=== PATIENT | male | born 1975 | race Caucasian/White ===

== ENCOUNTER → 2020-06-06 11:51 | Outpatient (CLI) | payer OTHER, SELFPAY ==
--- NOTE | 2020-06-06 11:58 | RAD_ITS ---
STUDY: X-RAY - PELVIS AND BILATERAL HIPS REASON FOR EXAM: Right hip pain. TECHNIQUE: AP view of the pelvis.? 2 views of the right hip, and 2 views of the left hip were obtained. COMPARISON: None. FINDINGS: Normal visualized soft tissue structures. Normal bilateral iliac wings, sacroiliac joints and visualized sacrum. Normal bilateral superior and inferior pubic rami. Normal pubic symphysis. Normal bilateral ischial tuberosities. Normal visualized right femoral head. Normal right acetabulum. Normal right hip joint. Normal visualized left femoral head. There is a small left os acetabula. Normal left hip joint. RAD/Hips B/L min 2 views w/ Pelvis IMPRESSION: Small left os acetabula. Otherwise, unremarkable x-ray examination of the pelvis and bilateral hips. Electronically Signed: Davie Campbell MD at 14:33 EST Tel , Service support ,
== END ==
PROVIDERS: PCP Family Medicine; Referring Provider Family Medicine; Visit Provider Family Medicine
DX: M25.551 Pain in right hip (principal); M25.552 Pain in left hip
CPT/HCPCS: 73521

== ENCOUNTER → 2021-05-19 15:00 | Outpatient (CLI) | payer OTHER, SELFPAY ==
[2021-05-19 18:22] LABS: Hemoglobin 13.8 g/dL (13.0-16.5); Mean Corp Hgb Conc 32.9 g/dL (32-36); Mean Corpuscular Hgb 29.5 pg (27.0-32.0); Mean Corpuscular Volume 89.7 fL (80-94); Platelet Count 206 K/mm3 (150-450); RBC Distribution Width CV 13.3 % (11.6-14.6); RBC Distribution Width SD 44.3 fl (35.1-43.9); Red Blood Count 4.68 M/mm3 (4.6-6.2); White Blood Count 9.6 K/mm3 (4.4-11.0)
[2021-05-19 19:09] LABS: ALB/GLOB Ratio 1.2 RATIO (0.9-2.4); AST(SGOT) 23 U/L (15-37); Alanine Aminotransfer ALT/SGPT 46 U/L (16-61); Albumin, Serum 3.8 g/dL (3.2-5.0); Alkaline Phosphatase 71 U/L (45-117); Anion Gap 8 (5-15); BUN 13 mg/dL (7-18); BUN/Creat Ratio 16.9 RATIO (10-20); Calcium,Total 8.9 mg/dL (8.5-10.1); Chloride 103 mmol/L (98-107); Cholesterol 224 mg/dL (200); Creatinine, Serum 0.77 mg/dL (0.70-1.30); EST Glomerular Filtration Rate 115 mL/min (>60); Est Glom Filt Rate - Afr Amer 139 mL/min (>60); Globulin 3.2 g/dL (2.2-4.2); Glucose 80 mg/dL (74-106); High Density Lipoprotein 37 mg/dL; PSA,Total - Annual Screen 0.48 ng/mL (0.00-4.00); Potassium 3.9 mmol/L (3.5-5.1); Sodium Level 139 mmol/L (136-145); Triglycerides 189 mg/dL; Very Low Density Lipoprotein 38 mg/dL (5-40)
== END ==
PROVIDERS: Registered Nurse; PCP Family Medicine; Visit Provider Family Medicine
DX: Z00.00 Encounter for general adult medical examination without abnormal findings (principal); Z12.5 Encounter for screening for malignant neoplasm of prostate
CPT/HCPCS: 36415; 80053; 80061; 84153; 85027; G0103

== ENCOUNTER 2021-08-11 07:34 | Outpatient (CLI) | payer OTHER, SELFPAY ==
--- NOTE | 2021-08-11 07:45 | RAD_ITS ---
STUDY: X-RAY - ESOPHAGUS (BARIUM SWALLOW) WITH FLUOROSCOPY REASON FOR EXAM: Male, 45 years old. DYSPHAGIA TECHNIQUE: 20 view(s) of the esophagus were obtained following swallowing of barium. FLUOROSCOPY TIME (if supplied): (41 seconds) minutes/seconds COMPARISON: None. FINDINGS: There is no demonstrated esophageal foreign body. Mild degree of circumferential narrowing at the gastroesophageal junction. The patient ingested a 12 mm tablet at bedtime. The tablet is trapped at the gastroesophageal junction. Mild gastroesophageal reflux. Normal visualized aortic arch and descending thoracic aorta. Normal visualized pulmonary parenchyma. Normal visualized osseous structures of the thorax. RAD/Esophagus Dual Contrast IMPRESSION: Mild degree of the circumferential narrowing at the gastroesophageal junction with trapping of the 12 mm tablet at bedtime. Endoscopic correlation is recommended. Mild degree of gastroesophageal reflux. Electronically Signed: Harvey Cardona MD at 10:09 EDT ,
== END 2021-08-11 23:59 | disposition home or self-care (01) ==
LOC: RAD 07:34
PROVIDERS: PCP Family Medicine; Referring Provider Family Medicine; Visit Provider Family Medicine
DX: R13.10 Dysphagia, unspecified (principal)
CPT/HCPCS: 74221

== ENCOUNTER 2024-07-25 21:47 | Inpatient (IN) | payer OTHER, SELFPAY ==
[2024-07-25 21:47] VITALS: BP 181/99; PULSE 60; RESP 15; TEMP 36.6; O2SAT 97; BMI 32.3
--- NOTE | 2024-07-25 22:08 | EX.ED.DYSGE1 ---
HPI History of Present Illness Chief Complaint: Abd Pain Informant: patient and spouse/S.O. Narrative Narrative: Patient is a 48-year-old male with no significant past medical history. He states that he saw his provider recently and was diagnosed with influenza and has taken 4 days worth of Tamiflu. He states he was also tested for strep and was positive and has been on amoxicillin for 3 days. Today he developed upper abdominal discomfort and bouts of nausea and vomiting. He does state his daughter was sick with bouts of nausea and vomiting but this was roughly 2 weeks ago. Otherwise he denies any known sick contacts with similar symptoms. He is unsure if he has picked up an other infection or if this is related to potential medication side effect and therefore comes in for evaluation [facility] Medical History (Updated 07/26/24 @ 00:[address] Chavez Diallo, ) Influenza A Medical History no medical history no medical history Home Medications ?Medication ?Instructions ?Recorded ?Last Taken ?Type omeprazole 10 mg capsule,delayed 10 mg PO ONCE 04/16/24 Unknown History release benzonatate 200 mg capsule 200 mg PO TID PRN cough #20 caps 07/18/24 Unknown Rx amoxicillin 500 mg tablet 500 mg PO Q12H 10 days #20 tabs 07/22/24 Unknown Rx Allergy/AdvReac Type Severity Reaction Status Date / Time No Known Allergies Allergy Verified 07/25/24 21:49 Social History Smoking Status: Current every day smoker tobacco type: cigarettes ROS ROS ED Constitutional Constitutional ED: Denies chills or fever(s) Eyes Eyes: Denies change in vision ENT ENT ED: Reports rhinorrhea and sore throat Cardiovascular Cardiovascular: Denies chest pain Respiratory/Chest Respiratory/Chest: Denies cough or dyspnea Gastrointestinal Gastrointestinal: Reports abdominal pain, nausea and vomiting; Denies diarrhea Genitourinary Genitourinary ED: Denies dysuria or hematuria Musculoskeletal Musculoskeletal: Reports myalgias Integumentary Denies rash Neurologic Neurologic: Denies headache(s) Hematologic/Lymphatic Hematologic/Lymphatic: Denies easy bleeding or easy bruising Allergic/Immunologic Allergic/Immunologic ED: Denies mouth swelling or tongue swelling EXAM Physical Exam Const Vital Signs: 07/25/24 21:47 07/25/24 23:47 Temperature 97.9 F Temperature Source Temporal Pulse Rate 60 62 Respiratory Rate 15 18 Blood Pressure 181/99 H 163/89 H Blood Pressure Mean 126 113 Pulse Ox 97 95 Oxygen Delivery Method Room Air Room Air Positive well nourished and well developed General Appearance ED: well developed; Negative for pallor HEENT Reports dry mucous membranes HEENT Narrative: No tongue or lip swelling no oral lesions no airway edema or compromise No signs of peritonsillar abscess noted in the posterior pharynx Mucous membranes are dry and tacky Mouth ED: Yes dry mucous membranes Mouth: dry mucous membranes Eyes PERRL and EOMs intact bilaterally General Eye ED: Negative for scleral icterus Neck supple Neck Narrative: No nuchal rigidity or meningeal signs noted Resp normal respiratory effort and clear to auscultation bilaterally Cardio regular rate and regular rhythm Rate: other Other Details: Heart is regular rate and rhythm without murmurs rubs or gallops Radial and carotid pulses are equal and symmetric GI non-distended and no masses GI Narrative: Abdomen is soft and nondistended with hyperactive bowel sounds There is mild pain on palpation in the upper abdomen diffusely without voluntary guarding or rigidity No pulsatile mass or fluid wave Negative Gatica sign Auscultation: hyperactive bowel sounds Palpation: soft Extremity normal to inspection Neuro oriented x3, CN's II-XII intact bilaterally and no sensory deficits noted Sensorium / Orientation: alert Motor Exam: strength 5/5 throughout Psych mental status grossly normal Skin no rashes or lesions noted and No skin turgor normal Skin Narrative: Skin turgor is increased consistent with mild dehydration General Skin Exam: Negative for jaundice or pallor MDM MDM MDM Narrative Medical decision making narrative: Patient arrived to the ER hypertensive but otherwise with stable vitals. He reports a recent diagnosis of influenza and strep and has been on Tamiflu and amoxicillin. His report of abdominal pain with nausea and vomiting could be secondary to a repeat infection such as norovirus versus rotavirus. There is also a potential that his symptoms are related to adverse medication reaction as he has been on Tamiflu and amoxicillin. Patient also could have abdominal symptoms secondary to a lower lobe pneumonia. Moreover, the patient could have atypical presentation for pancreatitis acute cholecystitis biliary colic or acute appendicitis. His white count is elevated at approximately 16 with left shift as he has approximately 12 neutrophils and therefore a CT scan of the abdomen pelvis was obtained. The CT scan showed acute appendicitis with appendicolith but no perforation or abscess. Secondary to this he was started on Zosyn and the case was discussed with general surgery Dr. Delgadillo. At this time the patient will be admitted to his service with plan of surgical removal of his appendix in the morning History & Record Review Discussion w/independent historian: Patient and Significant other Lab Data Attestation: I reviewed the patient's lab results. Labs: Laboratory Results - last 24 hr 07/25/24 22:00 WBC 15.7 H RBC 4.80 Hgb 14.0 Hct 41.4 MCV 86.3 MCH 29.2 MCHC 33.8 RDW Std Deviation 39.9 RDW Coeff of Jose G 12.7 Plt Count 266 MPV 10.0 Immature Gran % (Auto) 0.400 Neut % (Auto) 78.7 H Lymph % (Auto) 13.3 L Monroe % (Auto) 6.9 Eos % (Auto) 0.4 Baso % (Auto) 0.3 Absolute Neuts (auto) 12.3 H Absolute Lymphs (auto) 2.09 Nucleated RBC % 0 Sodium 139 Potassium 3.7 Chloride 101 Carbon Dioxide 23.8 Anion Gap 14 BUN 15 Creatinine 0.88 Estim Creat Clear Calc 121.54 Est GFR (MDRD) Non-Af 105 BUN/Creatinine Ratio 16.7 Glucose 116 H Calcium 9.3 Total Bilirubin 0.24 Direct Bilirubin 0.11 AST 22 ALT 28 Alkaline Phosphatase 76 Total Protein 7.4 Albumin 4.0 Globulin 3.4 Lipase 22 Radiography Diagnostic Testing: Clinical Impression(s) from Imaging Studies Abdomen/Pelvis CT 07/25/24 22:23 IMPRESSION: Findings consistent with acute appendicitis. No abscess formation. No free air. One or more dose reduction techniques were used (e.g., Automated exposure control, adjustment of the mA and/or kV according to patient size, use of iterative reconstruction technique). Reading Location: [facility] Chest X-Ray 07/25/24 22:41 IMPRESSION: NEGATIVE CHEST Reading Location: [facility] Chest x-ray as interpreted by the emergency medicine physician reveals no acute infiltrate pneumothorax or pleural effusion Discharge Plan Dx/Rx/DC Orders Clinical Impression: Acute appendicitis, Hypertension Disposition Disposition: [facility]
[2024-07-25] MEDS: Ondansetron 4 MG/2 ML Vial IV (22:11)
[2024-07-25] MEDS: Morphine 4 MG/ML Syringe IV (22:11)
[2024-07-25] MEDS: 0.9% Normal Saline (1000mL) 1,000 ML 999 ML IV ×2 (22:11→23:07)
[2024-07-25 22:16] LABS: Absolute Lymphocyte Count 2.09 X10^3/uL (0.83-4.51); Absolute Neutrophil Count 12.3 X10^3/uL (2.0-7.7); Basophil# 0.04 X10^3/uL; Basophil% 0.3 % (0-1); Eosinophil# 0.07 X10^3/uL; Eosinophils% 0.4 % (0-5); Hematocrit 41.4 % (40-54); Lymphocyte # 2.09 X10^3/ul (0.83-4.51); Lymphocyte % 13.3 % (19-41); Mean Corp Hgb Conc 33.8 g/dL (32-36); Mean Corpuscular Hgb 29.2 pg (27.0-32.0); Mean Corpuscular Volume 86.3 fL (80-94); Monocyte# 1.08 X10^3/uL; Monocyte% 6.9 % (0-10); NRBC Flagged by Analyzer 0 % (0-5); Neutrophil # 12.31 X10^3/uL (2.7-7.7); Neutrophil % 78.7 % (47-70); Platelet Count 266 K/mm3 (150-450); RBC Distribution Width CV 12.7 % (11.6-14.6); RBC Distribution Width SD 39.9 fl (35.1-43.9); White Blood Count 15.7 K/mm3 (4.4-11.0)
--- NOTE | 2024-07-25 22:23 | CT_ITS ---
PROCEDURE: ABDOMEN/PELVIS W IV CONT ONLY TECHNIQUE: Abdomen and pelvis CT with intravenous contrast. No oral contrast. IV CONTRAST: COMPARISON: None. FINDINGS: Lung bases: Clear Liver: Tiny low attenuating lesion, too small to characterize. Gallbladder: Unremarkable. Spleen: Unremarkable. Pancreas: Unremarkable. Adrenals: Unremarkable. Kidneys: Unremarkable. Bladder: Unremarkable. Reproductive Organs: Unremarkable. Bowel: Unremarkable. Appendix: The appendix is distended with wall thickening and adjacent stranding measuring 1.5 cm, as well as an appendicolith. Lymph nodes: No suspicious lymph node enlargement. Vasculature: Mild diffuse atherosclerotic calcifications are noted. Peritoneum / Retroperitoneum: No ascites. No free air. Bones: Unremarkable. CT/Abdomen/Pelvis W IV Cont ONLY IMPRESSION: Findings consistent with acute appendicitis. No abscess formation. No free ai r. One or more dose reduction techniques were used (e.g., Automated exposure contr ol, adjustment of the mA and/or kV according to patient size, use of iterative reconstruction technique). Reading Location: [facility]
[2024-07-25 22:35] LABS: AST(SGOT) 22 U/L (<=37); Alanine Aminotransfer ALT/SGPT 28 U/L (<=46); Alkaline Phosphatase 76 U/L (40-129); Anion Gap 14 (5-15); BUN 15 mg/dL (4-19); BUN/Creat Ratio 16.7 RATIO (10-20); Bilirubin, Direct 0.11 mg/dL (0.00-0.30); Calcium,Total 9.3 mg/dL (7.6-11.0); Carbon Dioxide 23.8 mmol/L (21.0-32.0); Chloride 101 mmol/L (98-108); Creatinine, Serum 0.88 mg/dL (0.70-1.20); EST Glomerular Filtration Rate 105 (>60); Estimated Creatinine Clearance 121.54 ml/min (50-250); Globulin 3.4 g/dL (2.2-4.2); Glucose 116 mg/dL (70-99); Lipase 22 U/L (13-75); Potassium 3.7 mmol/L (3.3-5.1); Protein, Total 7.4 g/dL (5.9-8.4); Sodium Level 139 mmol/L (133-145); Total Bilirubin 0.24 mg/dL (0.00-1.30)
--- NOTE | 2024-07-25 22:41 | RAD_ITS ---
PROCEDURE: CHEST PA AND LATERAL REASON FOR EXAM: Cough TECHNIQUE: Frontal and lateral views of the chest. COMPARISON: None. FINDINGS: The heart size is normal. The mediastinal contour is unremarkable. The lungs are clear. The bones are unremarkable. RAD/Chest PA and Lateral IMPRESSION: NEGATIVE CHEST [facility]
[2024-07-25] MEDS: HYDROmorphone 1 MG/ML Syringe IV (23:07)
[2024-07-25 23:47] VITALS: BP 163/89; PULSE 62; RESP 18; O2SAT 95
[2024-07-26] VITALS (19 sets, daily range): BP systolic 115–163; BP diastolic 65–93; PULSE 59–95; RESP 16–24; TEMP 36.5–37.6; O2SAT 90–97; BMI 33.0
--- NOTE | 2024-07-26 00:12 | ED.RN ---
Dr. Elie kendall
[2024-07-26] MEDS: Piperacil/Tazobactam 3.375 GM in 0.9% Normal Saline (50mL MB+) 50 ML IV ×4 (00:23→21:15)
[2024-07-26] MEDS: 0.9% Normal Saline (1000mL) 1,000 ML 200 ML IV (00:23)
[2024-07-26] MEDS: Morphine 2 MG/ML Syringe IV ×5 (01:36→20:57)
[2024-07-26] MEDS: 0.9% Saline Lock 10 ML Syringe IV ×3 (01:36→20:56)
[2024-07-26 07:21] LABS: Hematocrit 40.4 % (40-54); Hemoglobin 13.6 g/dL (13.0-16.5); Mean Corp Hgb Conc 33.7 g/dL (32-36); Mean Corpuscular Hgb 29.3 pg (27.0-32.0); Mean Corpuscular Volume 87.1 fL (80-94); Mean Platelet Vol. 9.7 fl (6.2-12.0); Platelet Count 242 K/mm3 (150-450); RBC Distribution Width CV 12.8 % (11.6-14.6); RBC Distribution Width SD 40.6 fl (35.1-43.9); Red Blood Count 4.64 M/mm3 (4.6-6.2); White Blood Count 14.8 K/mm3 (4.4-11.0)
--- NOTE | 2024-07-26 08:47 | HP.PCM_ITS ---
HPI - General General Date of Admission: 07/26/24 Date of Service: 07/26/24 Chief Complaint: Right lower quadrant abdominal pain HPI Narrative ANDER HAY, is a 48 M who presents with a 1 day history of worsening right lower quadrant abdominal pain. Patient states last Tuesday he tested positive for influenza A. He was given Tamiflu and completed that prescription except fro 1 tablet. Patient continued not feeling well 4 days later and returned to urgent care on Tuesday and tested positive for strep and was placed on amoxicillin for 10 days. Patient notes he stayed home from work Tuesday and Tuesday. Tuesday he returned to work where he had pizza for lunch. Following eating lunch, he noted to have centralized abdominal pain. He came home and took a shower and the pain became worse and he told his he better go to the ED. Patient states the abdominal pain was associated with nausea and vomiting. He notes after his shower the pain radiated from the central location to the right lower quadrant. Patient also noted diarrhea with urgency over the last [address] scan obtained in the ED demonstrated acute appendicitis with an appendicolith and adjacent stranding measuring 1.5 cm. Patient's WBC is 14.8. He denies any previous cardiac history or pulmonary history. He smokes 1 ppd of cigarettes. He denies any illicit drugs. He denies any previous abdominal surgeries. He denies any previous complications or side effects from anesthesia. [facility] Medical History (Updated 07/26/24 @ 10:09 by Brenda HESS PAChaimC) Acid reflux Influenza A Medical History no medical history Home Medications ?Medication ?Instructions ?Recorded ?Last Taken ?Type benzonatate 200 mg capsule 200 mg PO TID PRN cough #20 caps 07/18/24 Unknown Rx amoxicillin 500 mg tablet 500 mg PO Q12H 10 days #20 t abs 07/22/24 Unknown Rx oseltamivir 75 mg capsule 75 mg PO BID 07/26/24 Unknow n History pantoprazole 40 mg tablet,delayed 40 mg PO DAILY 07/26 Unknown History release Allergy/AdvReac Type Severity Reaction Status Date / Time No Known Allergies Allergy Verified 07/25/24 21:49 Surgical History (Updated 07/26/24 @ 01:29 by Catrachita Stallworth) S/P excision of lipoma Status post repair of ligament of ankle Social History Smoking Status: Current every day smoker tobacco type: cigarettes ROS Constitutional Constitutional: Reports systems reviewed and no addt'l complaints, except as documented Eyes Eyes: Reports systems reviewed and no addt'l complaints, except as documented ENT HEENT: Reports systems reviewed and no addt'l complaints, except as documented Cardiovascular Cardiovascular: Reports systems reviewed and no addt'l complaints, except as documented Respiratory/Chest Respiratory/Chest: Reports systems reviewed and no addt'l complaints, except as documented Gastrointestinal Gastrointestinal: Reports systems reviewed and no addt'l complaints, except as documented Genitourinary Genitourinary: Reports systems reviewed and no addt'l complaints, except as documented Musculoskeletal Musculoskeletal: Reports systems reviewed and no addt'l complaints, except as documented Integumentary Integumentary: Reports systems reviewed and no addt'l complaints, except as documented Neurologic Neurologic: Reports systems reviewed and no addt'l complaints, except as documented Psychiatric Psychiatric: Reports systems reviewed and no addt'l complaints, except as documented Endocrine Endocrinology: Reports systems reviewed and no addt'l complaints, except as documented Hematologic/Lymphatic Hematologic/Lymphatic: Reports systems reviewed and no addt'l complaints, except as documented Allergic/Immunologic Allergic/Immunologic: Reports systems reviewed and no addt'l complaints, except as documented Vital Signs Vital Signs Vital Signs: 07/25/24 21:47 07/25/24 23:47 07/26/24 00:30 Temperature 97.9 F 98.4 F Temperature Source Temporal Pulse Rate 60 62 63 Respiratory Rate 15 18 18 Blood Pressure 181/99 H 163/89 H 163/93 H Blood Pressure Mean 126 113 116 Blood Pressure Source Blood Pressure Position Blood Pressure Location Pulse Ox 97 95 97 Oxygen Delivery Method Room Air Room Air 07/26/24 01:18 07/26/24 01:18 07/26/24 04:55 Temperature 97.9 F 99 F Temperature Source Oral Temporal Pulse Rate 59 L 62 Respiratory Rate 18 18 Blood Pressure 161/90 H 147/87 H Blood Pressure Mean 113 107 Blood Pressure Source Blood Pressure Position Blood Pressure Location Pulse Ox 94 95 Oxygen Delivery Method Room Air Room Air Room Air 07/26/24 07:00 07/26/24 08:34 Temperature 98 F Temperature Source Temporal Pulse Rate 64 Respiratory Rate 18 Blood Pressure 136/78 H Blood Pressure Mean 97 Blood Pressure Source Monitor Blood Pressure Position Semi-Fowlers Blood Pressure Location Right Arm Pulse Ox 96 96 Oxygen Delivery Method Room Air Room Air Weight Weight: 230 lb 8 oz Body Mass Index (BMI) 33.0 Physical Exam Const alert, oriented x3 and no apparent distress HEENT normocephalic and head/scalp atraumatic Eyes PERRL Neck full ROM Chest inspection of chest normal Resp normal respiratory effort and clear to auscultation bilaterally Cardio regular rate and regular rhythm GI GI Narrative: Abdomen- soft, nondistended. Guarding of the right lower quadrant along with pain to palpation. Hypoactive bowel sounds. no CVA tenderness Back/Spine no CVA tenderness Extremity normal to inspection Skin no rashes or lesions noted Neuro no focal motor deficits and no sensory deficits noted Psych mental status grossly normal and thought process normal Results Lab / Micro Data 07/26/24 07:15 07/25/24 22:00 Labs: Laboratory Results - last 24 hr 07/25/24 22:00: WBC 15.7 H, RBC 4.80, Hgb 14.0, Hct 41.4, MCV 86.3, MCH 29.2, MCHC 33.8, RDW Std Deviation 39.9, RDW Coeff of Jose G 12.7, Plt Count 266, MPV 10.0, Immature Gran % (Auto) 0.400, Neut % (Auto) 78.7 H, Lymph % (Auto) 13.3 L, Curry % (Auto) 6.9, Eos % (Auto) 0.4, Baso % (Auto) 0.3, Absolute Neuts (auto) 12.3 H, Absolute Lymphs (auto) 2.09, Nucleated RBC % 0, Sodium 139, Potassium 3.7, Chloride 101, Carbon Dioxide 23.8, Anion Gap 14, BUN 15, Creatinine 0.88, Estim Creat Clear Calc 121.54, Est GFR (MDRD) Non-Af 105, BUN/Creatinine Ratio 16.7, Glucose 116 H, Calcium 9.3, Total Bilirubin 0.24, Direct Bilirubin 0.11, AST 22, ALT 28, Alkaline Phosphatase 76, Total Protein 7.4, Albumin 4.0, Globulin 3.4, Lipase 22 07/26/24 07:15: WBC 14.8 H, RBC 4.64, Hgb 13.6, Hct 40.4, MCV 87.1, MCH 29.3, MCHC 33.7, RDW Std Deviation 40.6, RDW Coeff of Jose G 12.8, Plt Count 242, MPV 9.7 Imaging Radiology Impression Abdomen/Pelvis CT 07/25/24 22:23 IMPRESSION: Findings consistent with acute appendicitis. No abscess formation. No free air. One or more dose reduction techniques were used (e.g., Automated exposure control, adjustment of the mA and/or kV according to patient size, use of iterative reconstruction technique). [facility] X-Ray 07/25/24 22:41 IMPRESSION: NEGATIVE CHEST Reading [facility] Assessment & Plan Assessment/Plan (1) Acute appendicitis: QUALIFIERS: Acute appendicitis type: with localized peritonitis A ppendicitis gangrene presence: without gangrene Appendicitis perforation presence: without perforation Appendicitis abscess presence: without abscess Q ualified Code(s): K35.30 - Acute appendicitis with localized peritonitis, without perforation or gangrene PLAN: I am seeing this patient in conjunction with Dr. Delgadillo. He will independently evaluate this patient. Patient with an 8 day history of upper respiratory infection and strep infection prodromal with a 1 day history of worsening right lower quadrant abdominal pain. CT scan confirms acute appendicitis with an appendicolith. Dr. Delgadillo will plan to perform a laparoscopic appendectomy later this afternoon. Procedure details, risks and benefits have been explained. Patient and his spouse have had the opportunity to ask and have questions answered. Patient verbally understands and agrees with the plan. Possible discharge following the procedure pending recovery time. Thank you for allowing us to participate in this patient's care. Charges/Coding Visit Charges Inpatient E&M: 45613 Init Hosp L2
[2024-07-26] MEDS: Ondansetron 4 MG/2 ML Vial IV (09:49)
[2024-07-26] MEDS: 0.9% Normal Saline (1000mL) 1,000 ML 100 ML IV (10:51)
--- NOTE | 2024-07-26 11:46 | CPS ---
Pt working on own
--- NOTE | 2024-07-26 14:12 | PCM.PRE.AN2 ---
ASA Classification* ASA Classification ASA Classification: 3 Assessment & Plan Anesthesia* Anesthesia Assessment Anesthesia Assessment: Discussed sedation and/or anesthesia options, risks, benefits, and alternatives with patient/parents/legal guardian/POA. Questions invited. The patient/parents/legal guardian/POA seems to understand and agrees to proceed with anesthesia plan. Reviewed the physical assessment, medical history, allergy history and patient home medications list prior to surgery/procedure/anesthetic and documented any changes. Performed airway and anesthesia risk assessments. Anesthesia Type Anesthesia Type: General History Source History Obtained from:: Patient and Chart Anesthesia Focused Assessment* Temperature: 99.7 F Pulse Rate: 60 Blood Pressure: 133/77 Respiratory Rate: 18 Pulse Ox: 95 Oxygen Delivery Method: Room Air Airway Assessment Mouth opens: >3 cm Mallampati Score: II Teeth Condition: Intact Neck Range of motion (ROM): Full ROM Focused Labs Anesthesia Preop lab: CBC WBC 14.8 K/mm3 (4.4-11.0) H 07/26/24 07:15 07/26/24 RBC 4.64 M/mm3 (4.6-6.2) 07/26/24 07:15 07/26/24 Hgb 13.6 g/dL (13.0-16.5) 07/26/24 07:15 07/26/24 Hct 40.4 % (40-54) 07/26/24 07:15 07/26/24 Plt Count 242 K/mm3 (150-450) 07/26/24 07:15 07/26/24 CHEMISTRY Potassium 3.7 mmol/L (3.3-5.1) 07/25/24 22:00 07/25/24 Sodium 139 mmol/L (133-145) 07/25/24 22:00 07/25/24 BUN 15 mg/dL (4-19) 07/25/24 22:00 07/25/24 Creatinine 0.88 mg/dL (0.70-1.20) 07/25/24 22:00 07/25/24 Glucose 116 mg/dL (70-99) H 07/25/24 22:00 07/25/24 COAG Pre-Assessment Diagnosis/Proposed Procedure Planned Operative Procedure(s): Laparoscopic appendectomy. Anesthesia History Anesthesia History - digital measurement advisor: Anesthesia History - digital measurement advisor Hx Hospitalization Any Problems With Anesthesia No 07/26/24 01:18 Cholinesterase deficiency No 07/26/24 01:18 You/Your Family Experience No 07/26/24 01:18 fever (hyperthermia) with Relationship Recent Exposure to Contagious Yes 07/26/24 01:18 Disease Does patient have nerve No 07/26/24 01:18 stimulator Patient instructed to have No 07/26/24 01:18 device shut off --Does patient have Pacemaker or ICD? When Was Last Pacemaker Check QUESTION #4 FULL TEXT: You/Your Family Experience fever (hyperthermia) with Anesthesia Last Oral Intake Last Oral intake: Last Oral Intake NPO since Meds taken in AM with sips of water? Meds patient instructed to take am of surgery Any additional information?: Yes NPO since: 00:00 PONV PONV - digital measurement advisor: PONV - digital measurement advisor Female HX of Motion Sickness HX of N/V After Surgery Non-Smoker Duration of Surgery greater than 60 minutes Number of Risk Factors PONV Score Height & Weight Height & Weight: Anesthesia: Height & Weight Height 5 ft 10 in 07/26/24 01:07 Weight: 104.553 kg 07/26/24 01:07 Body Mass Index (BMI) 33.0 07/26/24 01:07 Respiratory Assessment Respiratory Assessment - digital measurement advisor: Respiratory Tract Infection Hx - digital measurement advisor Hx Respiratory Tract Infection Yes 07/26/24 01:18 Any additional information?: Yes Hx Respiratory Tract Infection: Yes (Patient had flu a last week which then improved. But he contracted strep.) STOP Sleep Apnea STOP Sleep Apnea - digital measurement advisor: STOP Sleep Apnea - digital measurement advisor Hx Hypertension No 07/26/24 01:07 Hx Sleep Apnea No 07/26/24 01:07 CPAP BIPAP Do you snore loudly (louder Yes 07/26/24 01:07 than talking or can be heard Do you often feel tired/ No 07/26/24 01:07 fatigued/ sleepy during daytime? Has anyone observed you stop No 07/26/24 01:07 breathing during sleep? STOP Results Negative 07/26/24 01:07 QUESTION #5 FULL TEXT : Do you snore loudly (louder than talking or can be heard through closed doors)? Tobacco Use History Tobacco Use History - digital measurement advisor: Tobacco Use History - digital measurement advisor Tobacco Use Smoking Status Current every day smoker 07/26/24 07:58 Hx Tobacco Use Yes 07/26/24 01:07 Years Smoking Packs Smoked per Day Smoking Cessation Date was within the last 15 years Hx Smoking Cessation Date Hx Smoking Cessation Counseling Hematologic Medial History Hematologic Hx - digital measurement advisor: Hematologic Medical Hx - cash accounting clerk Hx of Blood Transfusion No 07/26/24 01:07 Hx of Transfusion in last 3 No 07/26/24 01:07 Months Date of Last Transfusion (if within last 3 months) Ever experience any problems No 07/26/24 01:07 with transfusion(s)? Specify any problems Hx of Preganancy in last 3 N/A 07/26/24 01:07 Months Nurse Filling Out Transfusion LFORREST 07/26/24 01:07 & Questions: Date: 07/26/24 07/26/24 01:07 Time: 01:09 07/26/24 01:07 Patient unable to answer at this time (ie. confused, unrespo /Reproduction History /Reproductive History - digital measurement advisor: /Reproductive Hx- digital measurement advisor Hx Now No 07/26/24 01:18 Gestational Age (in weeks): EDC: Hx Hx Para Hx Section SAB No 07/26/24 01:18 Active Medications Active Medications: Current Medications Generic Name Dose Route Start Last Admin Trade Name Freq PRN Reason Stop Dose Admin Acetaminophen 1,000 mg 07/26/24 06:00 07/26/24 13:15 Acetaminophen 500 Mg Tablet PO Not Given Q8 ERA Sodium Chloride 100 mls @ 15 mls/hr 07/26/24 00:39 IV .Q6H40M PRN Saline Flush Piperacillin Sod/Tazobactam 50 mls @ 12.5 mls/hr 07/26/24 06:00 07/26/24 09:09 Sod 3.375 gm/ Sodium Chloride IV Infused Q8 ERA Infusion Sodium Chloride 1,000 mls @ 100 mls/hr 07/26/24 09:50 07/26/24 10:51 IV 07/26/24 19:49 100 mls/hr .Q10H ERA Administration Protocol Morphine Sulfate 2 - 4 mg 07/26/24 00:56 07/26/24 13:25 Morphine 2 Mg/Ml Syringe IV 2 mg Q3H PRN PRN Administration Pain Score 6-10 Ondansetron HCl 4 mg 07/26/24 00:56 07/26/24 09:49 Ondansetron 4 Mg/2 Ml Vial IV 4 mg Q8H PRN PRN Administration NAUSEA/VOMITING Oxycodone HCl 10 mg 07/26/24 00:56 Oxycodone 5 Mg Tablet PO Q4H PRN PRN Pain Score 4-10 Sodium Chloride 10 - 40 ml 07/26/24 00:39 07/26/24 04:57 0.9% Saline Lock 10 Ml Syringe IV 10 ml UD PRN Administration SALINE FLUSH PFSH Medical History Acid reflux Influenza A Medical History no medical history Home Medications ?Medication ?Instructions ?Recorded ?Last Taken ?Type benzonatate 200 mg capsule 200 mg PO TID PRN cough #20 caps 07/18/24 Unknown Rx amoxicillin 500 mg tablet 500 mg PO Q12H 10 days #20 tabs 07/22/24 Unknown Rx oseltamivir 75 mg capsule 75 mg PO BID 07/26/24 Unknown History pantoprazole 40 mg tablet,delayed 40 mg PO DAILY 07/26/24 Unknown History release Allergy/AdvReac Type Severity Reaction Status Date / Time No Known Allergies Allergy Verified 07/26/24 13:30 Surgical History S/P excision of lipoma Status post repair of ligament of ankle Social History Smoking Status: Current every day smoker tobacco type: cigarettes Review of Systems (Anesthesia) ROS Narrative System reviewed and no additional complaints, except as documented.
--- NOTE | 2024-07-26 15:00 | APP_PTH ---
PATIENT: ANDER ANDREW LOC: [facility]2 U#:[id number] AGE/SX: 48/M ROOM: [id number] RE07/28/[address]: Dr. Chente Delgadillo MD : 1975 BED: 1 DIS: 07/30/2024 SPEC #: [id number] RECD: 07/27/24 09:10 STATUS: SUSHILA REQ #: [id number] DIGNA: 07/26/24 15:[address]: Chente Delgadillo DEPT: SURGICAL PATHOLOGY RECD BY: Gumaro Sexton ENTERED: 07/27/24 09:11 SP TYPE: APPENDIX OTHR DR: MD Dr. Chavez Tamez DO Tissues: Appendix, NOS Procedures: Surgery Specimen Level III HEADER OPERATION: Laparoscopic appendectomy PRE-OP DIAGNOSIS: Acute appendicitis TISSUE SUBMITTED: Appendix MICROSCOPIC DIAGNOSIS Appendix, appendectomy: * Acute appendicitis. MICROSCOPIC DESCRIPTION Slides are reviewed. GROSS DESCRIPTION Received in formalin labeled, Ander Andrew and designated appendix, is a vermiform appendix that measures 5.1 cm long x 1.2 cm in diameter. The serosal surface is yellow-quiñonez, slightly ragged with extensive yellow-quiñonez, fibrin and a minimal amount of fibrous adhesions. The serosa of the margin is inked black. Sectioning shows extensive areas of mucosal hemorrhage however no areas of perforation and no fecaliths are seen. The mesoappendix measures 5.5 x 2.7 x 1.6 cm. Safety Belt Installer sections submitted in one cassette.JOVANNI. 07/27/2024 CPT:74760
[2024-07-26] MEDS: Bupiv/Epi 0.25% 30 ML Vial (16:03)
--- NOTE | 2024-07-26 16:10 | PCM.OPRPT ---
Problems Associated Problem List Diagnoses (1) Acute appendicitis: Procedures Digestive 40xxx-49xxx: [id number] Laparoscopy appendectomy Operative Report (Standard) Operative Information Date of Procedure: 07/26/24 Pre-Operative Diagnosis: Acute appendicitis Post-Operative Diagnosis: Acute appendicitis Surgery/Procedure Performed: Laparoscopic appendectomy armament repairer: Yes Yarn Sizer: Silvio Dasilva Tasks completed by nursing assistants teacher: Closing and Retracting Type of Anesthesia: General and Local RN Documented Start/Stop Times: Operation Date: 07/26/24 15:00 Case Time Into Pre-Op 07/26/24 13:31 Out of Pre-Op 07/26/24 15:14 Anesthesia Start 07/26/24 15:16 Into Room 07/26/24 15:16 Procedure Start 07/26/24 15:34 Procedure End 07/26/24 16:09 Anesthesia End 07/26/24 16:16 Out of Room 07/26/24 16:16 Into Recovery 07/26/24 16:21 Procedure Start Time: 15:34 Procedure Stop Time: 16:09 Select all DRAINS/GRAFTS/IMPLANTS that apply: None Special Medications: IV Zosyn Estimated Blood Loss: 5 mL Specimen collected: Yes Description of specimen(s) removed: Appendix Description of surgery: The patient is a 48-year-old male who was admitted early this morning with abdominal pain for less than 12 hours. This started off as generalized abdominal pain and then migrated to the right lower quadrant. He was seen and evaluated by the ER staff. He underwent a CT scan that showed a dilated and inflamed appendix. Patient was subsidy admitted overnight with plans for appendectomy today. Patient was brought to the operating room today following informed consent. Antibiotics were being infused. He is placed supine on the operative table with arms outstretched on arm boards. A general anesthesia was induced. Once adequately sedated his left arm was comfortably tucked at his side and his right arm was kept on an armboard. The abdomen was prepped and draped in the usual sterile manner. A 5 mm incision was made just below the umbilicus which a 5 mm trocar was placed optically. This was placed without incident. Once in place the abdomen is then fully insufflated with CO2 gas. A 5 mm 0 degree scope was inserted. There were no signs of bowel or vascular injury next a 5 mm trocar was placed in the left side of the abdomen under direct visualization. And then a 12 mm trocar was placed under direct visualization in the left upper quadrant. The thickened appendix was identified this was covered in a fibrin or purulent exudate. He was quite hard. It did not seem ruptured but seems quite inflamed. I was able to then carefully peeled the appendix free to the point where I could reflect the appendix in a cephalad direction. The terminal ileum was seen coming into the cecum. I then created a small window in the mesentery with a [place] dissector right at the base of the appendix. A JERMAINE 45 stapler load was fired across the base the appendix flush with the cecum. Upon firing this stapler, purulent exudate and a fecalith was extruded from the appendix. This was copiously suctioned and irrigated. A vascular load on the stapler was then utilized to transect the mesoappendix. Hemostasis was excellent. The thickened appendix was then placed into a bag and brought out through the 12 mm trocar site. The fascia did need to be stretched in order to get the appendix free. This was successfully removed. The trocar was replaced. The right lower quadrant was then copiously irrigated and suctioned clear and dry. Again hemostasis was excellent. The fascia at the 12 mm trocar site was closed using a fascial closure device he is along with 0 PDS. 2 separate sutures were placed. This closed the fascia nicely. The remaining trocars were opened up and insufflation was allowed to escape. Local anesthetic was injected each of the incisions for total of 20 cc of local anesthetic. 4-0 Vicryl was then used to close the skin incisions. Skin glue was applied as dressing. He was awakened from anesthesia and taken to recovery in good condition. A PIT WORKER POWER SHOVEL was utilized as a first assist. His role included holding the camera, retraction and skin closure Surgical Findings: See operative notes Complications Complications: No Admit VTE Documentation VTE Present on Admission: No VTE Mechan Device Prophylaxis: SCD's Reason prophylaxis not ordered: Treatment Not Indicated
--- NOTE | 2024-07-26 16:23 | PCM.POST.ANE ---
Anesthesia: Postop Eval I Current Vital Signs Temperature: 98.7 F Pulse Rate: 95 Blood Pressure: 124/76 Respiratory Rate: 24 Pulse Ox: 94 Oxygen Delivery Method: Nasal Cannula Oxygen Flow Rate (L/min): 2 Assessment Airway patent: Yes Spontaneous unlabored respirations: Yes Mental status: Awake and Calm nausea: No Vomiting: No Anesthesia Complication: No Fluid Hydration Crystalloid volume administer (ml): 900 Total IV fluid infused: 900 Progress Note Anesthesia document: Postop Eval 1 completed: Yes
[2024-07-26] MEDS: oxyCODONE 5 MG Tablet 10 MG PO (18:14)
--- NOTE | 2024-07-26 20:08 | POSTOPAN2_ITS ---
Anesthesia Postop Eval I Sum Postop Eval Completion status Anesthesia document: Postop Eval 1 completed: Yes Anesthesia Postop Eval I Summary Anesthesia Postop Eval I Summary: Anesthesia Postop Eval I: Assessment Summary Airway patent Yes 07/26/24 16:24 LITHOGRAPHED PLATE INSPECTOR.[email or web address] Spontaneous unlabored Yes 07/26/24 16:24 LITHOGRAPHED PLATE INSPECTOR.[email or web address] respirations Mental status Awake,Calm 07/26/24 16:24 LITHOGRAPHED PLATE INSPECTOR.[email or web address] nausea No 07/26/24 16:24 LITHOGRAPHED PLATE INSPECTOR.[email or web address] Vomiting No 07/26/24 16:24 LITHOGRAPHED PLATE INSPECTOR.[email or web address] Anesthesia Postop Eval I: Fluid Summary Crystalloid volume administer 900 07/26/24 16:24 LITHOGRAPHED PLATE INSPECTOR.[email or web address] (ml) Colloids volume administered ( ml) Blood Product volume administered (ml) Total IV fluid infused 900 07/26/24 16:24 LITHOGRAPHED PLATE INSPECTOR.[email or web address] Anesthesia Postop Eval I: Summary Notes Anesthesia Complication No 07/26/24 16:24 LITHOGRAPHED PLATE INSPECTOR.[email or web address] Anesthesia Complication Comment: Post-operative progress note Anesthesia: Postop Eval II Evaluation Mental status: Awake and Calm Pain Level: 1 nausea: No Vomiting: No
--- NOTE | 2024-07-26 20:08 | PCM.POSTANE2 ---
Anesthesia Postop Eval I Sum Postop Eval Completion status Anesthesia document: Postop Eval 1 completed: Yes Anesthesia Postop Eval I Summary Anesthesia Postop Eval I Summary: Anesthesia Postop Eval I: Assessment Summary Airway patent Yes 07/26/24 16:24 FITNESS COORDINATOR.[email or web address] Spontaneous unlabored Yes 07/26/24 16:24 FITNESS COORDINATOR.[email or web address] respirations Mental status Awake,Calm 07/26/24 16:24 FITNESS COORDINATOR.[email or web address] nausea No 07/26/24 16:24 FITNESS COORDINATOR.[email or web address] Vomiting No 07/26/24 16:24 FITNESS COORDINATOR.[email or web address] Anesthesia Postop Eval I: Fluid Summary Crystalloid volume administer 900 07/26/24 16:24 FITNESS COORDINATOR.[email or web address] (ml) Colloids volume administered ( ml) Blood Product volume administered (ml) Total IV fluid infused 900 07/26/24 16:24 FITNESS COORDINATOR.[email or web address] Anesthesia Postop Eval I: Summary Notes Anesthesia Complication No 07/26/24 16:24 FITNESS COORDINATOR.[email or web address] Anesthesia Complication Comment: Post-operative progress note Anesthesia: Postop Eval II Evaluation Mental status: Awake and Calm Pain Level: 1 nausea: No Vomiting: No
[2024-07-26] MEDS: Acetaminophen 500 MG Tablet 1000 MG PO (20:16)
[2024-07-27] VITALS (9 sets, daily range): BP systolic 134–165; BP diastolic 76–94; PULSE 62–82; RESP 18–22; TEMP 36.6–37.1; O2SAT 88–97
[2024-07-27] MEDS: oxyCODONE 5 MG Tablet 10 MG PO ×3 (03:51→16:22)
[2024-07-27] MEDS: Piperacil/Tazobactam 3.375 GM in 0.9% Normal Saline (50mL MB+) 50 ML IV ×3 (06:28→21:06)
[2024-07-27] MEDS: Acetaminophen 500 MG Tablet 1000 MG PO ×3 (06:28→21:06)
[2024-07-27 08:17] LABS: Absolute Lymphocyte Count 1.55 X10^3/uL (0.83-4.51); Absolute Neutrophil Count 14.7 X10^3/uL (2.0-7.7); Basophil# 0.02 X10^3/uL; Basophil% 0.1 % (0-1); Hematocrit 39.1 % (40-54); Hemoglobin 12.7 g/dL (13.0-16.5); Lymphocyte # 1.55 X10^3/ul (0.83-4.51); Lymphocyte % 8.7 % (19-41); Mean Corp Hgb Conc 32.5 g/dL (32-36); Mean Corpuscular Hgb 29.1 pg (27.0-32.0); Mean Corpuscular Volume 89.7 fL (80-94); Mean Platelet Vol. 9.6 fl (6.2-12.0); Monocyte# 1.47 X10^3/uL; Monocyte% 8.2 % (0-10); NRBC Flagged by Analyzer 0 % (0-5); Neutrophil # 14.68 X10^3/uL (2.7-7.7); Neutrophil % 82.3 % (47-70); Platelet Count 238 K/mm3 (150-450); RBC Distribution Width CV 13.3 % (11.6-14.6); RBC Distribution Width SD 43.5 fl (35.1-43.9); Red Blood Count 4.36 M/mm3 (4.6-6.2); White Blood Count 17.9 K/mm3 (4.4-11.0)
[2024-07-27 09:37] LABS: Anion Gap 11 (5-15); BUN 12 mg/dL (4-19); Calcium,Total 8.9 mg/dL (7.6-11.0); Carbon Dioxide 25.6 mmol/L (21.0-32.0); Chloride 102 mmol/L (98-108); Creatinine, Serum 0.84 mg/dL (0.70-1.20); EST Glomerular Filtration Rate 107 (>60); Estimated Creatinine Clearance 128.83 ml/min (50-250); Glucose 126 mg/dL (70-99); Potassium 4.4 mmol/L (3.3-5.1); Sodium Level 138 mmol/L (133-145)
[2024-07-27] MEDS: Pantoprazole Sodium 40 MG Tablet PO (09:41)
[2024-07-27] MEDS: Senna Tablet 2 TABLET PO ×2 (10:49→21:35)
--- NOTE | 2024-07-27 16:36 | PN.SURG_ITS ---
Subjective Subjective Patient states that he is doing okay today following surgery yesterday afternoon. He states that pain is controlled. Initially most of his pain was incisional however he is also having some right lower quadrant pain. He denies any fevers or chills. He states that he is also on 2 L of oxygen. It sounds as though his sats do drop into the 80s when off of oxygen. He did recently have flu as well as strep throat Objective Data Objective Data Vital Signs: Vital Signs Temp Pulse Resp BP Pulse Ox O2 Del Method O2 Flow Rate 98.5 F 73 18 146/76 H 91 Nasal Cannula 2 07/27/24 13:40 07/27/24 13:40 07/27/24 13:40 07/27/24 13:40 07/27/24 16:14 07/27/24 16:14 07/27/24 16:14 Oxygen Flow Rate (L/min) 2 Oxygen Delivery Method Nasal Cannula Weight: 230 lb 8 oz Body Mass Index (BMI) 33.0 Intake & Output: Intake and Output for Last 24 Hours 07/25/24 07/26/24 07/27/24 23:59 23:59 23:59 Intake Total 4150 / 4150 1700 / 1700 Output Total 1200 / 1200 Balance 4150 / 4150 500 / 500 Lab / Micro Data 07/27/24 08:10 07/27/24 08:10 Labs: Laboratory Results - last 24 hr 07/27/24 08:10: WBC 17.9 H, RBC 4.36 L, Hgb 12.7 L, Hct 39.1 L, MCV 89.7, MCH 29.1, MCHC 32.5, RDW Std Deviation 43.5, RDW Coeff of Jose G 13.3, Plt Count 238, MPV 9.6, Immature Gran % (Auto) 0.700, Neut % (Auto) 82.3 H, Lymph % (Auto) 8.7 L, [place] % (Auto) 8.2, Eos % (Auto) 0.0, Baso % (Auto) 0.1, Absolute Neuts (auto) 14.7 H, Absolute Lymphs (auto) 1.55, Nucleated RBC % 0, Sodium 138, Potassium 4.4, Chloride 102, Carbon Dioxide 25.6, Anion Gap 11, BUN 12, Creatinine 0.84, Estim Creat Clear Calc 128.83, Est GFR (MDRD) Non-Af 107, BUN/Creatinine Ratio 14.0, Glucose 126 H, Calcium 8.9 Physical Exam Narrative He is awake and alert. He is in no acute distress. Abdomen is soft and appropriately tender. Incisions appear clean dry and intact Assessment & Plan Assessment/Plan (1) Acute appendicitis: QUALIFIERS: Acute appendicitis type: with localized peritonitis A ppendicitis gangrene presence: without gangrene Appendicitis perforation presence: without perforation Appendicitis abscess presence: without abscess Q ualified Code(s): K35.30 - Acute appendicitis with localized peritonitis, without perforation or gangrene PLAN: Plan The patient is a 48-year-old male who was recently admitted with appendicitis. He is postoperative day #1 following a laparoscopic appendectomy. Prior to developing appendicitis, patient had influenza plus strep throat. He continues to have pain in the right lower quadrant probably from some residual local peritonitis from his appendicitis. He denies any fevers. His white blood cell count was elevated this morning which is not entirely unexpected given the recent surgery and the amount of inflammation/infection present. He is also on 2 L of oxygen which we will attempt to wean. I feel that it is in his best interest to keep him 1 more day for IV antibiotics. Hopefully his white blood cell count will be much less tomorrow and he will be clinically more improved.. Dr. Haddad is to cover weekend. Would recommend discharging home on Augmentin. Will begin discharge paperwork
--- NOTE | 2024-07-27 16:40 | DS.PCM_ITS ---
Providers Date of Admission: 07/26/24 Primary Care Physician: Dr. Rex Honeycutt MD Reason For Visit: APPENDICITIS Diagnosis Discharge Diagnosis (1) Acute appendicitis: Status: Acute Code(s): K35.80 - Unspecified acute appendicitis Qualifiers: Acute appendicitis type: with localized peritonitis Appendicitis abscess presence: without abscess Appendicitis gangrene presence: without gangrene Appendicitis perforation presence: without perforation Qualified Code(s): K35.30 - Acute appendicitis with localized peritonitis, without perforation or gangrene Plan The patient is a 48-year-old male who was recently admitted with appendicitis. He is postoperative day #1 following a laparoscopic appendectomy. Prior to developing appendicitis, patient had influenza plus strep throat. He continues to have pain in the right lower quadrant probably from some residual local peritonitis from his appendicitis. He denies any fevers. His white blood cell count was elevated this morning which is not entirely unexpected given the recent surgery and the amount of inflammation/infection present. He is also on 2 L of oxygen which we will attempt to wean. I feel that it is in his best interest to keep him 1 more day for IV antibiotics. Hopefully his white blood cell count will be much less tomorrow and he will be clinically more improved.. Dr. Haddad is to cover weekend. Would recommend discharging home on Augmentin. Will begin discharge paperwork Medications at Discharge Home Medications benzonatate 200 mg capsule 200 mg PO TID PRN cough #20 caps 07/18/24 oseltamivir 75 mg capsule 75 mg PO BID 07/26/24 pantoprazole 40 mg tablet,delayed release 40 mg PO DAILY 07/26/24 amoxicillin 500 mg-potassium clavulanate 125 mg tablet (Augmentin) 1 tab PO Q12H 7 days #14 tabs 07/27/24 Hospital Course Operations appendectomy Summary of Care Provided Minutes Spent on Discharge: 30 Hospital Course: The patient is a 48-year-old male who presented to [facility] with about a 1 day history of right lower quadrant pain. He had a leukocytosis as well as a CT scan that showed acute appendicitis. This appendix was dilated up to about 1.5 cm and was associated with a fecalith/appendicolith. He underwent a laparoscopic appendectomy. There was a fair amount of exudate present. The appendix was quite thickened. It was removed without difficulty. The area was copiously irrigated and suctioned at the completion of the procedure. Previous to developing appendicitis, the patient had recently tested positive for flu as well as strep throat. As a result he remained on some nasal cannula oxygen postoperatively. Pain seems to be mostly controlled. I recommended that he stay an additional day for antibiotics. Physical Exam Narrative He is awake and alert. No acute distress. Abdomen is soft and appropriately tender. Incisions are clean dry and intact. Weight / BMI Weight Weight: 230 lb 8 oz Body Mass Index (BMI) 33.0 ABG / Lab / Microbiology Data 07/27/24 08:10 07/27/24 08:10 Laboratory: Laboratory Results - last 24 hr 07/27/24 08:10: WBC 17.9 H, RBC 4.36 L, Hgb 12.7 L, Hct 39.1 L, MCV 89.7, MCH 29.1, MCHC 32.5, RDW Std Deviation 43.5, RDW Coeff of Jose G 13.3, Plt Count 238, MPV 9.6, Immature Gran % (Auto) 0.700, Neut % (Auto) 82.3 H, Lymph % (Auto) 8.7 L, [place] % (Auto) 8.2, Eos % (Auto) 0.0, Baso % (Auto) 0.1, Absolute Neuts (auto) 14.7 H, Absolute Lymphs (auto) 1.55, Nucleated RBC % 0, Sodium 138, Potassium 4.4, Chloride 102, Carbon Dioxide 25.6, Anion Gap 11, BUN 12, Creatinine 0.84, Estim Creat Clear Calc 128.83, Est GFR (MDRD) Non-Af 107, BUN/Creatinine Ratio 14.0, Glucose 126 H, Calcium 8.9 D/C Instructions Discharge Diet: Light diet - advance as tolerated Discharge Activity: May Shower May shower in (days): 1 Ice area for (Minutes): 30 Lifting Restrictions: Keep lifting pushing and pulling less than 20 pounds for 6 weeks Call your doctor if your incision/area has: Continuous Slow Oozing, Sudden Increased Bleeding, Increased Pain/ Swelling, Increased Redness, Foul Smelling Discharge and Swelling at the incision site Call your doctor if you observe: Fever of 101 or Higher Cleanse incision/area with: Soap & Water DC O2, CPAP, BIPAP Needs Home O2 Discharge instructions: No DC home with Oxygen: No Please Follow Up With: Chente Delgadillo MD When: 1 to 2 weeks. Please call office to schedule appointment Meaningful Use Info Meaningful Use Meaningful Use Diagnoses (Choose all that apply): None applicable Ischemic Stroke Statin Dosing Therapy Reference: STATIN DOSE THERAPY REFERENCE: * Patients > 75 years receive moderate or high dose statin therapy. * Patients 75 years or YOUNGER should receive HIGH intensity statin dose unless contraindicated. You will be required to document reason for non-treatment if statin daily dose does not meet guidelines. HIGH DOSE STATIN THERAPY DAILY Atorvastatin > than or = to 40 mg Rosuvastatin > than or = to 20 mg Amlodipine + Atorvastatin > than or = to 2.5/40 mg Ezetimibe + Simvastatin 10/80 mg Simvastatin 80mg Discharge Plan Admission Admit Date/Time: 07/26/24 00:26 Primary Reason for Your Visit: Acute appendicitis Attending Provider: Chente Delgadillo Primary Care Provider: Rex Honeycutt Discharge Orders/Prescriptions Prescriptions: New amoxicillin-pot clavulanate [Augmentin] 500-125 mg tablet 1 tab PO Q12H 7 Days Qty: 14 0RF Continued benzonatate 200 mg capsule 200 mg PO TID PRN (Reason: cough) Qty: 20 0RF Discontinued amoxicillin 500 mg tablet 500 mg PO Q12H 10 Days Qty: 20 0RF No Action pantoprazole 40 mg tablet,delayed release (DR/EC) 40 mg PO DAILY oseltamivir 75 mg capsule 75 mg PO BID Referrals / Follow Up: Rex Honeycutt MD [Primary Care Provider] - Disposition Disposition (needs filled in before D/C Order can be placed): Home, Self Care
[2024-07-27] MEDS: 0.9% Saline Lock 10 ML Syringe IV (19:49)
[2024-07-27] MEDS: Ondansetron 4 MG/2 ML Vial IV (19:49)
--- NOTE | 2024-07-27 23:10 | RAD_ITS ---
PROCEDURE: ABDOMEN SINGLE VIEW REASON FOR EXAM: Nausea and vomiting, absent bowel sounds TECHNIQUE: Single view abdomen. COMPARISON: CT of the abdomen and pelvis dated July 25, 2024 FINDINGS: Prominent loops of gas-filled small bowel. No dilatation is demonstrated. No suspicious calcifications. The bones are unremarkable. RAD/Abdomen Single View IMPRESSION: Prominent loops of gas-filled small bowel, may represent ileus. If there is hi gh clinical suspicion for obstruction, CT of the abdomen and pelvis may be obtained for further evaluation. Reading Location: [facility]
[2024-07-27] MEDS: 0.9% Normal Saline (1000mL) 1,000 ML 125 ML IV (23:21)
--- NOTE | 2024-07-28 00:20 | RAD_ITS ---
PROCEDURE: ABDOMEN SINGLE VIEW (PORTABLE) REASON FOR EXAM: Nasogastric tube placement TECHNIQUE: Single view abdomen. At 00:20 FINDINGS: Nasogastric tube loops into the fundus of the stomach with tip at the body and side port at the fundus. RAD/Abdomen Single View (Portable) IMPRESSION: Nasogastric tube as above. Reading Location: [id number]
--- NOTE | 2024-07-28 00:35 | RAD_ITS ---
PROCEDURE: ABDOMEN SINGLE VIEW (PORTABLE) REASON FOR EXAM: Nasogastric tube placement TECHNIQUE: Single view abdomen. At 00:24 COMPARISON: Preceding radiograph FINDINGS: Film is marked #3 for nasogastric tube placement. Catheter further pulled back now with the tip in the proximal stomach. The side port remains within the stomach. RAD/Abdomen Single View (Portable) IMPRESSION: Nasogastric tube placement as above.. Reading Location: [id number]
--- NOTE | 2024-07-28 00:35 | RAD_ITS ---
PROCEDURE: ABDOMEN SINGLE VIEW (PORTABLE) REASON FOR EXAM: Nasogastric tube placement TECHNIQUE: Single view abdomen. COMPARISON: Preceding abdominal radiograph FINDINGS: Radiograph marked #2 for nasogastric tube placement at 00:21. Compared to the prior radiograph at 00:20 marked #1. Nasogastric tube slightly pulled back with the tube tip and side port remaining in the stomach. RAD/Abdomen Single View (Portable) IMPRESSION: Nasogastric tube as above.. Reading Location: [id number]
--- NOTE | 2024-07-28 00:57 | PN_ITS ---
Progress Note I was contacted by nursing earlier this evening for concerns that patient's abdomen was firm and distended and he was expressing complaints of severe nausea and dietary intolerance. I recommended immediate transition to n.p.o. status with application of IV fluids. Further, I recommended stat KUB. This study was completed and consistent with a picture of an ileus versus possible small bowel obstruction. Given patient's recent surgery and intraoperative findings he is at a significant risk for postoperative ileus. Therefore, I recommended p lacement of a nasogastric tube and follow-up KUB to confirm position. Patient was visited on the floor while this was being completed and I directed the NG tube to be pulled back as it appeared to be curling in the stomach?potentially kinking above the suction port. Once it was to satisfaction it was connected to low intermittent wall suction with instructions for flushing. Additionally, I provided verbal order for increasing patient's antiemetic frequency and one-time order for breakthrough nausea with Reglan 10 mg. Will plan to reevaluate patient in a.m. but he is advised to minimize his oral intake so we can get an accurate accounting of his NG tube output.
[2024-07-28 03:00] VITALS: BP 167/98; PULSE 80; RESP 18; TEMP 36.8; O2SAT 95
[2024-07-28] MEDS: Ondansetron 4 MG/2 ML Vial IV (03:20)
[2024-07-28] MEDS: Piperacil/Tazobactam 3.375 GM in 0.9% Normal Saline (50mL MB+) 50 ML IV ×3 (06:23→21:47)
[2024-07-28 06:42] LABS: Absolute Neutrophil Count 16.8 X10^3/uL (2.0-7.7); Basophil# 0.01 X10^3/uL; Basophil% 0.1 % (0-1); Eosinophil# 0.01 X10^3/uL; Eosinophils% 0.1 % (0-5); Hematocrit 43.9 % (40-54); Hemoglobin 14.8 g/dL (13.0-16.5); Lymphocyte % 8.5 % (19-41); Mean Corp Hgb Conc 33.7 g/dL (32-36); Mean Corpuscular Hgb 29.4 pg (27.0-32.0); Mean Corpuscular Volume 87.1 fL (80-94); Mean Platelet Vol. 10.4 fl (6.2-12.0); Monocyte# 1.36 X10^3/uL; Monocyte% 6.8 % (0-10); NRBC Flagged by Analyzer 0 % (0-5); Neutrophil # 16.78 X10^3/uL (2.7-7.7); Neutrophil % 83.9 % (47-70); Platelet Count 321 K/mm3 (150-450); RBC Distribution Width CV 13.3 % (11.6-14.6); RBC Distribution Width SD 42.3 fl (35.1-43.9); Red Blood Count 5.04 M/mm3 (4.6-6.2)
[2024-07-28 07:12] LABS: Anion Gap 12 (5-15); BUN 15 mg/dL (4-19); BUN/Creat Ratio 18.1 RATIO (10-20); Calcium,Total 9.2 mg/dL (7.6-11.0); Carbon Dioxide 25.6 mmol/L (21.0-32.0); Chloride 101 mmol/L (98-108); Creatinine, Serum 0.83 mg/dL (0.70-1.20); EST Glomerular Filtration Rate 107 (>60); Estimated Creatinine Clearance 130.38 ml/min (50-250); Glucose 131 mg/dL (70-99); Potassium 4.2 mmol/L (3.3-5.1); Sodium Level 139 mmol/L (133-145)
[2024-07-28] MEDS: 0.9% Normal Saline (1000mL) 1,000 ML 125 ML IV (08:40)
[2024-07-28 09:01] VITALS: BP 145/82; PULSE 73; RESP 16; TEMP 36.8; O2SAT 92
[2024-07-28 09:39] VITALS: O2SAT 92
--- NOTE | 2024-07-28 11:40 | PN.SURG_ITS ---
Subjective Subjective Patient seen and examined during AM rounds. He reports feeling somewhat better after NG tube insertion. However, he immediately falls this declaration with a question as to when he can have his NG tube removed. Unfortunately he denies any return of bowel function. He denies a sore throat but states that his NG tube is simply irritating. He is ambulating Objective Data Objective Data Vital Signs: Vital Signs Temp Pulse Resp BP Pulse Ox O2 Del Method O2 Flow Rate 98.2 F 73 16 145/82 H 92 Room Air 2 07/28/24 09:01 07/28/24 09:01 07/28/24 09:01 07/28/24 09:01 07/28/24 09:39 07/28/24 09:39 07/28/24 06:00 Oxygen Flow Rate (L/min) 2 Oxygen Delivery Method Room Air Weight: 230 lb 8 oz Body Mass Index (BMI) 33.0 Intake & Output: Intake and Output for Last 24 Hours 07/26/24 07/27/24 07/28/24 23:59 23:59 23:59 Intake Total 4150 / 4150 1750 / 1750 1130 / 1130 Output Total 1200 / 1200 1500 / 1500 Balance 4150 / 4150 550 / 550 -370 / -370 Lab / Micro Data 07/28/24 05:54 07/28/24 05:54 Labs: Laboratory Results - last 24 hr 07/28/24 05:54: WBC 20.0 H, RBC 5.04, Hgb 14.8, Hct 43.9, MCV 87.1, MCH 29.4, MCHC 33.7, RDW Std Deviation 42.3, RDW Coeff of Jose G 13.3, Plt Count 321, MPV 10.4, Immature Gran % (Auto) 0.600, Neut % (Auto) 83.9 H, Lymph % (Auto) 8.5 L, [place] % (Auto) 6.8, Eos % (Auto) 0.1, Baso % (Auto) 0.1, Absolute Neuts (auto) 16.8 H, Absolute Lymphs (auto) 1.70, Nucleated RBC % 0, Sodium 139, Potassium 4.2, Chloride 101, Carbon Dioxide 25.6, Anion Gap 12, BUN 15, Creatinine 0.83, Estim Creat Clear Calc 130.38, Est GFR (MDRD) Non-Af 107, BUN/Creatinine Ratio 18.1, Glucose 131 H, Calcium 9.2 Radiography Diagnostic Testing: Radiology Impression KUB X-Ray 07/27/24 23:10 IMPRESSION: Prominent loops of gas-filled small bowel, may represent ileus. If there is high clinical suspicion for obstruction, CT of the abdomen and pelvis may be obtained for further evaluation. Reading [facility] KUB X-Ray 07/28/24 00:20 IMPRESSION: Nasogastric tube as above. Reading Location: [facility] KUB X-Ray 07/28/24 00:35 IMPRESSION: Nasogastric tube as above.. Reading Location: [facility] KUB X-Ray 07/28/24 00:35 IMPRESSION: Nasogastric tube placement as above.. Reading Location: [facility] Physical Exam Const oriented x3 Resp normal respiratory effort GI GI Narrative: Distended, operative sites with skin glue and there is mild erythema about supraumbilical port site but no drainage. There is minimal tenderness with palpation. Assessment & Plan Assessment/Plan (1) Acute appendicitis: QUALIFIERS: Acute appendicitis type: with localized peritonitis A ppendicitis gangrene presence: without gangrene Appendicitis perforation presence: without perforation Appendicitis abscess presence: without abscess Q ualified Code(s): K35.30 - Acute appendicitis with localized peritonitis, without perforation or gangrene PLAN: Plan The patient is a 48-year-old male who was recently admitted with appendicitis. He is postoperative day #2 following a laparoscopic appendectomy. Prior to developing appendicitis, patient had influenza plus strep throat. In the last 24 hours patient has declared a postoperative ileus. Overnight patient became severely nauseous and a stat KUB was ordered demonstrating bowel gas pattern consistent with ileus. In response I ordered a NG tube placement. I presented to patient's bedside and was able to help direct placement via serial KUBs. This tube appears functional with an output of 650 mL overnight. Gastric aspirate largely consistent with gastric contents. Patient remains distended and absent return of bowel function. I suspect this is all related to the contamination from his recent operation. I discussed with him need to maintain the NG tube until he shows signs of return of bowel function. I also tried to empower him with measures he can take to try to hasten this return?including regular ambulation and sucking on hard candy. He appears frustrated by the persistence of the NG tube but does express understanding. I have switched patient's oral medications to IV and we will follow his electrolytes closely given the large volume shifts that have not taken place. Continue inpatient stay with IV antibiotics. Erick Haddad MD General Surgery Endocrine Surgery Pager: [facility] [address] [place] [address], [facility], [address] [place] [address] Office: [phone] Charges/Coding Visit Charges Inpatient E&M: 78993 Subs Hosp L2
[2024-07-28] MEDS: Pantoprazole Sodium 40 MG in 0.9% Normal Saline (100mL MB+) 100 ML 330 MG IV (12:15)
[2024-07-28 13:12] VITALS: BP 161/89; PULSE 74; RESP 16; TEMP 37; O2SAT 92
[2024-07-28] MEDS: Metoclopramide 10 MG/2 ML Vial IV (14:05)
[2024-07-28] MEDS: Morphine 2 MG/ML Syringe IV (14:27)
--- NOTE | 2024-07-28 14:28 | NURSING ---
pt has been belching and small amount of hiccups. Pt noted hiccups increased and some nausea. Rn notified and reglan given for relief. Pt has been ambulating in huber regularly. Reported that he has has small flatus
[2024-07-28 18:32] VITALS: BP 178/94; PULSE 77; RESP 16; TEMP 36.9; O2SAT 93
[2024-07-28 20:00] VITALS: BP 165/92; PULSE 79; RESP 18; TEMP 37; O2SAT 92
[2024-07-28] MEDS: Ketorolac 30 MG/ML Syringe IV (21:37)
[2024-07-29 03:33] VITALS: BP 156/86; PULSE 67; RESP 18; TEMP 36.4; O2SAT 92
[2024-07-29 04:52] LABS: Absolute Lymphocyte Count 2.11 X10^3/uL (0.83-4.51); Absolute Neutrophil Count 8.7 X10^3/uL (2.0-7.7); Basophil# 0.01 X10^3/uL; Basophil% 0.1 % (0-1); Eosinophil# 0.02 X10^3/uL; Eosinophils% 0.2 % (0-5); Hematocrit 39.5 % (40-54); Hemoglobin 12.9 g/dL (13.0-16.5); Lymphocyte # 2.11 X10^3/ul (0.83-4.51); Lymphocyte % 17.5 % (19-41); Mean Corp Hgb Conc 32.7 g/dL (32-36); Mean Corpuscular Hgb 28.8 pg (27.0-32.0); Mean Corpuscular Volume 88.2 fL (80-94); Mean Platelet Vol. 10.2 fl (6.2-12.0); Monocyte# 1.13 X10^3/uL; Monocyte% 9.4 % (0-10); NRBC Flagged by Analyzer 0 % (0-5); Neutrophil # 8.73 X10^3/uL (2.7-7.7); Neutrophil % 72.2 % (47-70); Platelet Count 285 K/mm3 (150-450); RBC Distribution Width CV 13.4 % (11.6-14.6); RBC Distribution Width SD 43.2 fl (35.1-43.9); Red Blood Count 4.48 M/mm3 (4.6-6.2); White Blood Count 12.1 K/mm3 (4.4-11.0)
[2024-07-29 05:12] LABS: Anion Gap 9 (5-15); BUN 18 mg/dL (4-19); BUN/Creat Ratio 21.2 RATIO (10-20); Calcium,Total 8.7 mg/dL (7.6-11.0); Carbon Dioxide 27.2 mmol/L (21.0-32.0); Chloride 104 mmol/L (98-108); Creatinine, Serum 0.85 mg/dL (0.70-1.20); EST Glomerular Filtration Rate 107 (>60); Estimated Creatinine Clearance 127.31 ml/min (50-250); Glucose 97 mg/dL (70-99); Magnesium 2.5 mg/dL (1.5-2.2); Sodium Level 141 mmol/L (133-145)
[2024-07-29] MEDS: Ketorolac 30 MG/ML Syringe IV ×3 (05:22→17:57)
[2024-07-29] MEDS: Piperacil/Tazobactam 3.375 GM in 0.9% Normal Saline (50mL MB+) 50 ML IV ×3 (05:22→22:36)
[2024-07-29 10:45] VITALS: BP 139/73; PULSE 65; RESP 16; TEMP 36.8; O2SAT 92
[2024-07-29] MEDS: 0.9% Saline Lock 10 ML Syringe IV ×3 (13:03→22:36)
[2024-07-29] MEDS: Pantoprazole Sodium 40 MG in 0.9% Normal Saline (100mL MB+) 100 ML 330 MG IV (13:10)
[2024-07-29 15:40] VITALS: BP 150/86; PULSE 67; RESP 16; TEMP 36.6; O2SAT 92
--- NOTE | 2024-07-29 15:57 | PCM.PN.SRG ---
Subjective Subjective Patient seen and examined during rounds. He reports feeling better. He is pleased to report, specifically, he experienced return of bowel function with some gas beginning this morning at approximately 3 AM and this has continued. He denies any bowel movements. He denies any nausea, vomiting, or excessive belching. He has been ambulating. Objective Data Objective Data Vital Signs: Vital Signs Temp Pulse Resp BP Pulse Ox O2 Del Method O2 Flow Rate 98.3 F 65 16 139/73 H 92 Room Air 2 07/29/24 10:45 07/29/24 10:45 07/29/24 10:45 07/29/24 10:45 07/29/24 10:45 07/29/24 10:45 07/28/24 06:00 Oxygen Flow Rate (L/min) 2 Oxygen Delivery Method Room Air Weight: 230 lb 8 oz Body Mass Index (BMI) 33.0 Intake & Output: Intake and Output for Last 24 Hours 07/27/24 07/28/24 07/30/24 23:59 23:59 00:59 Intake Total 1750 / 1750 2440 / 2440 300 / 300 Output Total 1200 / 1200 2050 / 2400 900 / 900 Balance 550 / 550 390 / 40 -600 / -600 Lab / Micro Data 07/29/24 03:33 07/29/24 03:33 Labs: Laboratory Results - last 24 hr 07/29/24 03:33: WBC 12.1 H, RBC 4.48 L, Hgb 12.9 L, Hct 39.5 L, MCV 88.2, MCH 28.8, MCHC 32.7, RDW Std Deviation 43.2, RDW Coeff of Jose G 13.4, Plt Count 285, MPV 10.2, Immature Gran % (Auto) 0.600, Neut % (Auto) 72.2 H, Lymph % (Auto) 17.5 L, [place] % (Auto) 9.4, Eos % (Auto) 0.2, Baso % (Auto) 0.1, Absolute Neuts (auto) 8.7 H, Absolute Lymphs (auto) 2.11, Nucleated RBC % 0, Sodium 141, Potassium 4.0, Chloride 104, Carbon Dioxide 27.2, Anion Gap 9, BUN 18, Creatinine 0.85, Estim Creat Clear Calc 127.31, Est GFR (MDRD) Non-Af 107, BUN/Creatinine Ratio 21.2 H, Glucose 97, Calcium 8.7, Phosphorus 3.0, Magnesium 2.5 H Physical Exam Const oriented x3 and no apparent distress Resp normal respiratory effort GI GI Narrative: Decreased abdominal distention, soft, nontender to palpation, stable appearance to operative sites. Nasogastric tube with mildly bilious output. 500 mL in collection canister. Assessment & Plan Assessment/Plan (1) Acute appendicitis: QUALIFIERS: Acute appendicitis type: with localized peritonitis Appendicitis gangrene presence: without gangrene Appendicitis perforation presence: without perforation Appendicitis abscess presence: without abscess Qualified Code(s): K35.30 - Acute appendicitis with localized peritonitis, without perforation or gangrene PLAN: Plan The patient is a 48-year-old male who was recently admitted with appendicitis. He is postoperative day #3 following a laparoscopic appendectomy. Prior to developing appendicitis, patient had influenza plus strep throat. Patient appears to be resolving his postoperative ileus and has demonstrated return of bowel function with presence of flatus. His NG tube, currently appears to be decreased. He denies any nausea or vomiting and his abdominal exam is also improved. With these clinical indicators in place I recommend proceeding for a clamp trial on his NG tube. Specific instructions were given to both patient and nursing. For Mr. Andrew's part, he is asked to sit out of bed in the chair for a full 4 hours without being connected to suction so that he is in the safest position to prevent an aspiration event. He is advised that he may take walks as well during this time. At the conclusion of this 4 hours nursing is asked to return patient to continuous suction for 30 minutes and record the subsequent aspirate. If less than 100 mL they should notify me and plan to discontinue NG tube and initiated diet. Otherwise patient is asked to remain strict n.p.o. and will continue IV fluids and IV antibiotics. Erick Haddad MD General Surgery Endocrine Surgery Pager: [facility] [address] [place] [address], [address] [place] [address] Office: [phone] Charges/Coding Visit Charges Inpatient E&M: 93870 Subs Hosp L2
[2024-07-29 20:54] VITALS: BP 161/84; PULSE 72; RESP 16; TEMP 36.3; O2SAT 92
[2024-07-30] MEDS: Ketorolac 30 MG/ML Syringe IV ×3 (00:54→12:46)
[2024-07-30 04:00] VITALS: BP 163/82; PULSE 63; RESP 16; TEMP 36.4; O2SAT 94
[2024-07-30 05:38] LABS: Absolute Lymphocyte Count 1.76 X10^3/uL (0.83-4.51); Absolute Neutrophil Count 6.1 X10^3/uL (2.0-7.7); Basophil# 0.02 X10^3/uL; Basophil% 0.2 % (0-1); Eosinophil# 0.09 X10^3/uL; Hematocrit 37.5 % (40-54); Hemoglobin 12.3 g/dL (13.0-16.5); Lymphocyte # 1.76 X10^3/ul (0.83-4.51); Lymphocyte % 19.9 % (19-41); Mean Corp Hgb Conc 32.8 g/dL (32-36); Mean Corpuscular Hgb 29.1 pg (27.0-32.0); Mean Corpuscular Volume 88.7 fL (80-94); Mean Platelet Vol. 10.5 fl (6.2-12.0); Monocyte# 0.84 X10^3/uL; Monocyte% 9.5 % (0-10); NRBC Flagged by Analyzer 0 % (0-5); Neutrophil # 6.09 X10^3/uL (2.7-7.7); Neutrophil % 68.8 % (47-70); Platelet Count 292 K/mm3 (150-450); RBC Distribution Width CV 13.3 % (11.6-14.6); RBC Distribution Width SD 43.4 fl (35.1-43.9); Red Blood Count 4.23 M/mm3 (4.6-6.2); White Blood Count 8.9 K/mm3 (4.4-11.0)
[2024-07-30] MEDS: Piperacil/Tazobactam 3.375 GM in 0.9% Normal Saline (50mL MB+) 50 ML IV (06:41)
[2024-07-30 07:03] LABS: Anion Gap 12 (5-15); BUN 24 mg/dL (4-19); BUN/Creat Ratio 27.1 RATIO (10-20); Calcium,Total 8.8 mg/dL (7.6-11.0); Carbon Dioxide 26.3 mmol/L (21.0-32.0); Chloride 106 mmol/L (98-108); Creatinine, Serum 0.87 mg/dL (0.70-1.20); EST Glomerular Filtration Rate 106 (>60); Estimated Creatinine Clearance 124.39 ml/min (50-250); Glucose 113 mg/dL (70-99); Potassium 3.7 mmol/L (3.3-5.1); Sodium Level 144 mmol/L (133-145)
[2024-07-30 08:16] VITALS: BP 153/77; PULSE 65; RESP 18; TEMP 36.6; O2SAT 94
[2024-07-30] MEDS: Pantoprazole Sodium 40 MG in 0.9% Normal Saline (100mL MB+) 100 ML 330 MG IV (11:04)
--- NOTE | 2024-07-30 12:20 | CASEMGMT ---
ANAMARIA BRUSH Face to Face with patient for initial transition planning/care coordination assessment. ANAMARIA BRUSH introduced self and role at [facility]. Patient lying in bed, alert and oriented. Patient willing to participate in assessment and is able to answer all questions appropriately. Care providers, pharmacy, and demographics verified. Strata: 1 PCP: Silvino Specialists: none Preferred Pharmacy: [facility] Retail at discharge Insurance: [employer] Prescription Benefit: yes Living Will/HPOA: yes, but they were completed prior to his current marriage and would like to update them. ANAMARIA BRUSH updated patient that if SW had time they could complete while he was here or he could refer to information card in discharge folder and schedule appt. Patient voiced understanding. LNOK: Living Arrangements: Patient lives with in a 2 story home. Patient is independent and able to ambulate stairs. Transportation: self, DME/HHC: Patient has cane and walker at home. No previous HHC or SNF. Patient wishes to discharge home, denies need for home health at this time. Patient states he has no further needs or concerns at this time. CM to follow for discharge planning needs that may arise. Disposition Plan: Patient to discharge home with family support and follow-up plans in place. Hamida BRASWELL, RN, CM
[2024-07-30] MEDS: 0.9% Saline Lock 10 ML Syringe IV (12:46)
--- NOTE | 2024-07-30 13:11 | DS.PCM_ITS ---
Providers Date of Admission: 07/28/24 Primary Care Physician: Dr. Rex Honeycutt MD Reason For Visit: APPENDICITIS Diagnosis Discharge Diagnosis (1) Acute appendicitis: Status: Resolved Code(s): K35.80 - Unspecified acute appendicitis Plan: I am seeing this patient in conjunction with Dr. Delgadillo. He will independently evaluate this patient. Patient with an 8 day history of upper respiratory infection and strep infection prodromal with a 1 day history of worsening right lower quadrant abdominal pain. CT scan confirms acute appendicitis with an appendicolith. Dr. Delgadillo will plan to perform a laparoscopic appendectomy later this afternoon. Procedure details, risks and benefits have been explained. Patient and his spouse have had the opportunity to ask and have questions answered. Patient verbally understands and agrees with the plan. Possible discharge following the procedure pending recovery time. Thank you for allowing us to participate in this patient's care. Medications at Discharge Home Medications benzonatate 200 mg capsule 200 mg PO TID PRN cough #20 caps 07/18/24 oseltamivir 75 mg capsule 75 mg PO BID 07/26/24 pantoprazole 40 mg tablet,delayed release 40 mg PO DAILY 07/26/24 amoxicillin 500 mg-potassium clavulanate 125 mg tablet (Augmentin) 1 tab PO Q12H 7 days #14 tabs 07/27/24 Hospital Course Operations appendectomy Summary of Care Provided Minutes Spent on Discharge: 30 Hospital Course: Patient is a 48 y/o M who presented with 1 day history of worsening right lower quadrant pain. CT scan of the ab/pel was obtained and demonstrated acute appendicitis. Dr. Delgadillo performed a laparoscopic appendectomy. Patient tolerated the procedure well. Patient developed a post-operative ileus. He had to have an NG tube placed. He notes return of bowel function on 07/29. NG tube was removed. Upon discharge, patient was tolerating a clear liquid diet. He notes passing flatus and having multiple bowel movements. He notes minimal amount of incisional discomfort. He voices readiness to be discharged to home. Physical Exam GI GI Narrative: Abdomen- soft, incisions c/d/i. No erythema or infection noted. Weight / BMI Weight Weight: 230 lb 8 oz Body Mass Index (BMI) 33.0 ABG / Lab / Microbiology Data 07/30/24 04:33 07/30/24 04:33 Laboratory: Laboratory Results - last 24 hr 07/30/24 04:33: WBC 8.9, RBC 4.23 L, Hgb 12.3 L, Hct 37.5 L, MCV 88.7, MCH 29.1, MCHC 32.8, RDW Std Deviation 43.4, RDW Coeff of Jose G 13.3, Plt Count 292, MPV 10.5, Immature Gran % (Auto) 0.600, Neut % (Auto) 68.8, Lymph % (Auto) 19.9, [place] % (Auto) 9.5, Eos % (Auto) 1.0, Baso % (Auto) 0.2, Absolute Neuts (auto) 6.1, Absolute Lymphs (auto) 1.76, Nucleated RBC % 0, Sodium 144, Potassium 3.7, Chloride 106, Carbon Dioxide 26.3, Anion Gap 12, BUN 24 H, Creatinine 0.87, Estim Creat Clear Calc 124.39, Est GFR (MDRD) Non-Af 106, BUN/Creatinine Ratio 27.1 H, Glucose 113 H, Calcium 8.8 D/C Instructions Discharge Diet: Light diet - advance as tolerated May shower in (days): 1 Ice area for (Minutes): 30 Call your doctor if your incision/area has: Continuous Slow Oozing, Sudden Increased Bleeding, Increased Pain/ Swelling, Increased Redness, Foul Smelling Discharge and Swelling at the incision site Call your doctor if you observe: Fever of 101 or Higher Cleanse incision/area with: Soap & Water DC O2, CPAP, BIPAP Needs Home O2 Discharge instructions: No Please Follow Up With: Chente Delgadillo MD When: 1 to 2 weeks. Please call office to schedule appointment Meaningful Use Info Meaningful Use Meaningful Use Diagnoses (Choose all that apply): None applicable Ischemic Stroke Statin Dosing Therapy Reference: STATIN DOSE THERAPY REFERENCE: * Patients > 75 years receive moderate or high dose statin therapy. * Patients 75 years or YOUNGER should receive HIGH intensity statin dose unless contraindicated. You will be required to document reason for non-treatment if statin daily dose does not meet guidelines. HIGH DOSE STATIN THERAPY DAILY Atorvastatin > than or = to 40 mg Rosuvastatin > than or = to 20 mg Amlodipine + Atorvastatin > than or = to 2.5/40 mg Ezetimibe + Simvastatin 10/80 mg Simvastatin 80mg Discharge Plan Admission Admit Date/Time: 07/28/24 13:18 Primary Reason for Your Visit: Acute appendicitis Attending Provider: Chente Delgadillo Primary Care Provider: Rex Honeycutt Instructions Additional Instructions / Restrictions: Appendectomy Diet ? Start light with soups and soft bland foods. You may advance diet as tolerated. Activity ? You may drive in 3-5 days but not while taking narcotic pain medication. Lifting ? You may lift up to 10 pounds 2 weeks. No strenuous activity for 4 weeks Dressings/Incision ? Do NOT tub bathe for 1 week Medications ? Anesthesia used during surgery and pain medications may cause constipation. I recommend initiating on the day of surgery a fiber supplement like, Metamucil, Citrucel, FiberCon, Benefiber, or a generic form of these medications. 1 heaping tablespoon in water daily. You may continue to utilize any bowel regimen or oral laxatives that you routinely take. ? As long as you are not intolerant to Tylenol, acetaminophen, ibuprofen, Motrin, Advil, Aleve, or similar medications, I would recommend transitioning to these [id number] medicines as soon as possible instead of continued use of narcotic pain medication. Follow up ? You should call [facility] soon after surgery, at [phone] option 2 to make a follow up appointment for 10-14 days after your surgery. Discharge Orders/Prescriptions Prescriptions: New amoxicillin-pot clavulanate [Augmentin] 500-125 mg tablet 1 tab PO Q12H 7 Days Qty: 14 0RF Continued benzonatate 200 mg capsule 200 mg PO TID PRN (Reason: cough) Qty: 20 0RF Discontinued amoxicillin 500 mg tablet 500 mg PO Q12H 10 Days Qty: 20 0RF No Action pantoprazole 40 mg tablet,delayed release (DR/EC) 40 mg PO DAILY oseltamivir 75 mg capsule 75 mg PO BID Referrals / Follow Up: Rex Honeycutt MD [Primary Care Provider] - Brenda Fisher PA-C [Med Staff - [facility]] - 08/09/24 Disposition Disposition (needs filled in before D/C Order can be placed): Home, Self Care Charges/Coding Visit Charges Inpatient E&M: 95355 Disch Hosp (post-op; no charge)
[2024-07-30 13:20] VITALS: BP 157/88; PULSE 58; RESP 16; TEMP 36.9; O2SAT 93
== END 2024-07-30 14:45 | disposition home or self-care (01) | DRG 398 ==
LOC: ED 07-26 00:14 → MS2 07-26 01:02
PROVIDERS: Anesthesiology; Surgery; Admitting Provider Surgery; Emergency Provider Emergency Medicine; PCP Family Medicine; Referring Provider Emergency Medicine; Visit Provider Surgery
PROC: 0DTJ4ZZ Resection of Appendix, Percutaneous Endoscopic Approach (ICD-10-PCS; CPT 44970; principal; 2024-07-26 14:40)
DX: K35.30 Acute appendicitis with localized peritonitis, without perforation or gangrene (principal); K56.7 Ileus, unspecified; K91.89 Other postprocedural complications and disorders of digestive system; I10 Essential (primary) hypertension; F17.210 Nicotine dependence, cigarettes, uncomplicated; K21.9 Gastro-esophageal reflux disease without esophagitis; Z79.2 Long term (current) use of antibiotics; Z79.899 Other long term (current) drug therapy
CPT/HCPCS: 36415; 71046; 74018; 74177; 80048; 80076; 83690; 83735; 84100; 85025; 85027; 88304; 93005; 94668; 99284; Q9967; A4216; J2405